=== PATIENT | male | born 2000 | race Caucasian/White ===

== ENCOUNTER 2023-05-04 23:10 | Emergency (ER) | payer BC, SELFPAY ==
[2023-05-04 23:15] VITALS: BP 109/76
--- NOTE | 2023-05-04 23:31 | ED.GENMED ---
History of Present Illness
General
Chief Complaint: Alcohol Problem
Source: patient and ambulance crew
Exam Limitations: none
Time Seen by Provider: 05/04/23 23:25
Nursing documentation reviewed up to this point in time: agreed with
History of Present Illness
History of Present Illness:
This is a 22-year-old male who admits to drinking alcohol tonight. He apparently safely returned home to his apartment but door was locked and he did not have his keys. He was apparently causing rhonchus, banging on the door which prompted police
notification and due to patient appearing intoxicated he was sent to the ED by EMS for further evaluation.
Patient's roommates, who were temporarily not at home at the time have since returned and are on their way to the ED to retrieve our patient.
Patient mitts to drinking alcohol tonight but denies daily alcohol use. He denies drug use.
He is noted to be frequently burping which he states is a chronic issue related to chronic GERD. He follows with GI with an appointment scheduled for next week.
He denies nausea nor vomiting.
He denies pain nor injury.
He is eager to be discharged to home.
Past History
Past History
ED Past Medical History: Asthma, GERD and Psychiatric (Anxiety)
ED Past Surgical History: None
Social History
Tobacco: Non-smoker
Alcohol: Occasional
Drug: None
Personal: Single
Living: with roommate
Employment: Employed
Family History
Family History: Other (Noncontributory)
Phy Exam
Physical Exam
Physical Exam:
GENERAL: 22-year-old male appears his stated age, awake and alert, appears in no acute distress. Frequently burping and holding emesis bag in front of his mouth.
EYE: pupils equal and reactive. anicteric. The head is normocephalic, atraumatic.
NECK: Supple, nontender, no meningismus, no significant adenopathy.
ENT: oral mucosa is moist. No rhinorrhea.
CARDIAC: Regular rate and rhythm. no murmur.
LUNGS: Clear breath sounds bilaterally, no acute respiratory distress, no wheezes/rales/rhonchi
ABDOMEN: Soft, nondistended, without focal tenderness, normoactive BS.
NEUROLOGICAL: Alert and oriented x3, no focal neuro deficits. Gait is steady.
SKIN: Warm and dry, normal color, skin intact. No rash.
MUSCULOSKELETAL: No C/C/E. peripheral pulses are full and equal b/l. No palpable tenderness.
PSYCH: Normal and appropriate interaction.
Scores
Withdrawal Assessment of Alcohol
Withdrawal Assessment Completed?: Not applicable
Course
Vital Signs
Initial and Last Documented VS:
Initial Vital Signs
Pulse Resp BP Pulse Ox
115 20 109/76 94
05/04/23 23:15 05/04/23 23:15 05/04/23 23:15 05/04/23 23:15
Last Documented Vital Signs
Pulse Resp BP Pulse Ox
115 20 109/76 94
05/04/23 23:15 05/04/23 23:15 05/04/23 23:15 05/04/23 23:15
MDM/Problems Addressed
Differential Diagnosis Includes:
22-year-old male presents via EMS due to acute alcohol intoxication and reportedly locked out of his apartment.
He is awake and alert, easily communicative, appears in no acute distress. He denies pain, denies injury.
He is ambulatory with steady unaided gait.
He denies frequent alcohol use, denies history of alcohol use disorder.
He is noted to have frequent burping and is holding an emesis bag over his mouth but has had no episodes of vomiting, denies nausea and states burping is a frequent, chronic issue for which she follows with GI for chronic GERD.
Overall exam is benign. Atraumatic.
2 sober roommates have arrived to take the patient home.
Patient has been encouraged to avoid any further alcohol consumption tonight and to avoid significant alcohol consumption going forward as alcohol can significantly aggravate GERD.
Follow-up with PCP as well as GI as already scheduled.
Chronic conditions affecting care: Other (GERD-chronic)
Acute Exacerbation and/or Progression of Chronic Illness: Other (GERD/chronic)
*Pulse Oximetry
Patient hypoxic: no
*Critical Care Note
Total Time (30-74mins, 75-104mins- exclusive of procedures): Not Applicable
ED Attending Note
-
Portions of this chart may have been created with voice recognition software.� Occasional wrong word or��sound alike� substitutions may have occurred due to the inherent limitations of voice recognition software.
Discharge Plan
Departure
Patient Disposition: Home (Routine Discharge)
Date of Disposition: 05/04/23
Time of Disposition: 23:31
Patient with high blood pressure during this ER visit?: No
Condition: Good
Discharge Problem:
acute alcohol consumption, Chronic GERD
Instructions: Acid reflux and gastroesophageal reflux disease in adults, Alcohol Intoxication ED
Prescriptions:
No Action
No Meds [No Current Medications]
0
Referrals:
Stef Segura MD [Active] - As needed
Interventions
Interventions:
*Risk Screen - Suicide Last Done: 05/04/23 23:15
*General Assessment Last Done: 05/04/23 23:15
*Neglect/Abuse Screening Last Done: 05/04/23 23:15
ED- Fall Risk Assessment Last Done: 05/04/23 23:20
*Nursing Disposition Last Done: 05/04/23 23:37
ED- Neurological Assessment Last Done: 05/04/23 23:33
ED-Psychological Assessment Last Done: 05/04/23 23:33
Discharge Date and Time
Discharge Date/Time: 05/04/23 23:37
== END 2023-05-04 23:37 | disposition home or self-care (01) ==
LOC: EMR 23:10
PROVIDERS: EMERGENCY PHYSICIAN Emergency Medicine
DX: F10.129 Alcohol abuse with intoxication, unspecified (principal); K21.9 Gastro-esophageal reflux disease without esophagitis; J45.909 Unspecified asthma, uncomplicated
CPT/HCPCS: 99282

== ENCOUNTER → 2023-06-24 06:30 | Day surgery (SDC) | payer BC, SELFPAY | LOC: GI 06:30 | PROVIDERS: ATTENDING PHYSICIAN Internal Medicine Gastroenterology | DX: K29.70 Gastritis, unspecified, without bleeding (principal); K22.89 Other specified disease of esophagus; K21.00 Gastro-esophageal reflux disease with esophagitis, without bleeding; K44.9 Diaphragmatic hernia without obstruction or gangrene | CPT/HCPCS: 43239; 88305; 88342 ==